=== PATIENT | male | born 1985 | race Caucasian/White ===

== ENCOUNTER 2016-09-16 20:17 | Emergency (ER) | payer MEDICAID ==
[2016-07-19 09:07] VITALS: BMI 25.8
[~2016-09-16 20:17] MED LIST: AMBIEN10 MG; AMOXICILLIN500 M1; BACLOFEN10 MG; CELEXA40 MG; HUMALOG 30100 UNITS/ SC; HYDROCODON-ACE1 EAC7; KLONOPIN1 MG; LANTUS INSULIN10 ML SC; LISINOPRIL5 MG PO; NEURONTIN 300300 MG; NORVASC10 MG; NORVASC5 MG; SAPHRIS5 MG SL; TENORMIN100 MG; TESSALON PERLE100 MG; VIBRAMYCIN 100100 MG; XANAX1 MG
== END 2016-09-16 22:56 | disposition home or self-care (01) ==
LOC: D.ER 20:17
DX: Z76.5 Malingerer [conscious simulation] (principal); Z03.89 Encounter for observation for other suspected diseases and conditions ruled out; F17.200 Nicotine dependence, unspecified, uncomplicated; F31.9 Bipolar disorder, unspecified

== ENCOUNTER 2016-09-18 10:30 | Emergency (ER) | payer MEDICAID ==
[2016-07-19 09:07] VITALS: BMI 25.8
== END 2016-09-18 15:40 | disposition left against medical advice (07) ==
LOC: D.ER 10:30
DX: D64.9 Anemia, unspecified (principal); K92.2 Gastrointestinal hemorrhage, unspecified; F10.10 Alcohol abuse, uncomplicated; F30.2 Manic episode, severe with psychotic symptoms; Z76.5 Malingerer [conscious simulation]; I10 Essential (primary) hypertension

== ENCOUNTER 2016-12-10 02:05 | Emergency (ER) | payer MEDICAID ==
[2016-07-19 09:07] VITALS: BMI 25.8
[2016-12-10 04:20] LABS: BASOPHILS 0.1 % (0-2); HEMATOCRIT 39.7 % (42.0-54.0); HEMOGLOBIN 13.7 g/dL (13.5-17.5); IMMATURE GRANULOCYTES 0.4 % (0-5); LYMPHOCYTES 35.8 % (15-50); MCH 31.1 pg (26.0-34.0); MCHC 34.5 g/dL (31.0-37.0); MCV 90.2 fL (80.0-100.0); MEAN PLATELET VOLUME 9.7 fL (7.4-10.4); MONOCYTES 7.3 % (2-11); NEUTROPHILS 55.4 % (40-80); RDW 12.8 % (11.5-14.5); WBC 8.2 10x3/uL (4.8-10.8)
[2016-12-10 04:21] LABS: UDS - AMPHET NEGATIVE QUAL (NEGATIVE); UDS - BARB NEGATIVE QUAL (NEGATIVE); UDS - BENZO POSITIVE QUAL (NEGATIVE); UDS - COCAINE NEGATIVE QUAL (NEGATIVE); UDS - METH NEGATIVE QUAL (NEGATIVE); UDS - OPIATE NEGATIVE QUAL (NEGATIVE); UDS - PCP NEGATIVE QUAL (NEGATIVE); UDS - THC NEGATIVE QUAL (NEGATIVE)
[2016-12-10 04:23] LABS: APPEARANCE CLEAR (CLEAR); BILIRUBIN NEGATIVE (NEGATIVE); COLOR YELLOW (YELLOW); GLUCOSE NEGATIVE (NEGATIVE); KETONE NEGATIVE (NEGATIVE); LEUKOCYTE ESTERASE NEGATIVE (NEGATIVE); NITRITE NEGATIVE (NEGATIVE); PROTEIN NEGATIVE (NEGATIVE); UROBILINOGEN NORMAL (NORMAL)
[2016-12-10 04:25] LABS: PLATELET COUNT 205 10x3/uL (130-400)
[2016-12-10 04:27] LABS: ALBUMIN 4.5 g/dL (3.4-5.0); ALKALINE PHOSPHATASE 62 U/L (46-116); ALT (SGPT) 32 U/L (10-68); BILIRUBIN - TOTAL 0.41 mg/dL (0.2-1.3); CALC OSMOLALITY 279 mosm/kg (275-300); CALCIUM 9.2 mg/dL (8.5-10.1); CARBON DIOXIDE 28.7 mmol/L (21.0-32.0); CHLORIDE - SERUM 105 mmol/L (98-107); CREATININE - SERUM 0.9 mg/dL (0.6-1.3); POTASSIUM - SERUM 3.7 mmol/L (3.5-5.1); PROTEIN - SERUM 7.9 g/dL (6.4-8.2); SODIUM 141 mmol/L (136-145); UREA NITROGEN 11 mg/dL (7-18); eGFR NON AFRICAN AMERICAN > 90 mL/min (90-120)
[2016-12-10 04:30] LABS: GLUCOSE 92 mg/dL (74-106)
[2016-12-10 04:37] LABS: THYROID STIMULATING HORMONE 2.09 uIU/mL (0.36-3.74)
== END 2016-12-10 06:58 | disposition short-term general hospital (02) ==
LOC: D.ER 02:05
PROVIDERS: Family Medicine
DX: R45.851 Suicidal ideations (principal); F23 Brief psychotic disorder; F31.9 Bipolar disorder, unspecified

== ENCOUNTER 2017-06-16 17:02 | Emergency (ER) | payer MEDICAID ==
[2016-07-19 09:07] VITALS: BMI 25.8
== END 2017-06-16 18:14 | disposition home or self-care (01) ==
LOC: D.ER 17:02
DX: S49.91XA Unspecified injury of right shoulder and upper arm, initial encounter (principal); W19.XXXA Unspecified fall, initial encounter; Y93.89 Activity, other specified; Y92.029 Unspecified place in mobile home as the place of occurrence of the external cause; F17.200 Nicotine dependence, unspecified, uncomplicated

== ENCOUNTER 2017-09-14 18:46 | Emergency (ER) | payer MEDICAID ==
[2016-07-19 09:07] VITALS: BMI 25.8
== END 2017-09-14 23:49 | disposition home or self-care (01) ==
LOC: D.ER 18:46
DX: S80.01XA Contusion of right knee, initial encounter (principal); Y04.2XXA Assault by strike against or bumped into by another person, initial encounter; Y93.89 Activity, other specified; Y92.89 Other specified places as the place of occurrence of the external cause; F17.200 Nicotine dependence, unspecified, uncomplicated

== ENCOUNTER 2018-03-25 15:14 | Emergency (ER) | payer MEDICAID ==
[~2018-03-25] VITALS: Ht 180.3 cm; Wt 75.0 kg
[2018-03-25 15:22] VITALS: Ht 180.3 cm; Wt 75.0 kg
[2018-03-25] MEDS ORDERED: NAPROSYN500 MG PO (16:07)
[2018-03-25] MEDS ORDERED: ROBAXIN500 MG PO (16:07)
[2018-03-25 17:00] VITALS: BP 122/80
== END 2018-03-25 16:19 | disposition home or self-care (01) ==
LOC: D.ER 15:14
DX: M25.511 Pain in right shoulder (principal); S46.911A Strain of unspecified muscle, fascia and tendon at shoulder and upper arm level, right arm, initial encounter; X58.XXXA Exposure to other specified factors, initial encounter; Y93.89 Activity, other specified; Y92.019 Unspecified place in single-family (private) house as the place of occurrence of the external cause; E11.9 Type 2 diabetes mellitus without complications; I10 Essential (primary) hypertension; F17.200 Nicotine dependence, unspecified, uncomplicated; J44.9 Chronic obstructive pulmonary disease, unspecified

== ENCOUNTER 2018-04-23 22:05 | Emergency (ER) | payer MEDICAID ==
[~2018-04-23] VITALS: Ht 180.3 cm; Wt 74.1 kg
[~2018-04-23 22:05] MED LIST changes: +NAPROSYN500 MG PO; +ROBAXIN500 MG PO
[2018-04-23 22:21] VITALS: Ht 180.3 cm; Wt 74.1 kg
[2018-04-23] MEDS ORDERED: SEROQUEL400 MG PO (22:23)
[2018-04-23] MEDS ORDERED: ZOLOFT100 MG PO (22:24)
[2018-04-23] MEDS ORDERED: ZANTAC300 MG PO (22:24)
[2018-04-23] MEDS ORDERED: XANAX1 MG (22:24)
[2018-04-23] MEDS ORDERED: PHENERGAN DM SYR5 ML PO (23:32)
[2018-04-23] MEDS ORDERED: VIBRAMYCIN 100100 MG PO (23:32)
[2018-04-24 00:18] VITALS: BP 146/84
== END 2018-04-24 00:19 | disposition home or self-care (01) ==
LOC: D.ER 22:05
DX: J20.9 Acute bronchitis, unspecified (principal); J06.9 Acute upper respiratory infection, unspecified; F17.200 Nicotine dependence, unspecified, uncomplicated; F20.9 Schizophrenia, unspecified

== ENCOUNTER 2020-04-04 14:56 | Emergency (ER) | payer MEDICAID ==
[~2020-04-04] VITALS: Ht 180.3 cm; Wt 70.5 kg
[~2020-04-04 14:56] MED LIST changes: +PHENERGAN DM SYR5 ML PO; +SEROQUEL400 MG PO; +VIBRAMYCIN 100100 MG PO; +ZANTAC300 MG PO; +ZOLOFT100 MG PO
[2020-04-04 15:23] VITALS: Ht 180.3 cm; Wt 70.5 kg
[2020-04-04] MEDS ORDERED: CYCLOBENZAPRINE10 MG PO ×2 (17:17→17:22)
[2020-04-04] MEDS ORDERED: NAPROSYN500 MG PO ×2 (17:17→17:22)
[2020-04-04 17:27] VITALS: BP 146/94
== END 2020-04-04 17:28 | disposition home or self-care (01) ==
LOC: D.ER 14:56
DX: S70.12XA Contusion of left thigh, initial encounter (principal); S80.02XA Contusion of left knee, initial encounter; S83.92XA Sprain of unspecified site of left knee, initial encounter; W01.0XXA Fall on same level from slipping, tripping and stumbling without subsequent striking against object, initial encounter; Y93.9 Activity, unspecified; Y92.9 Unspecified place or not applicable; E11.9 Type 2 diabetes mellitus without complications; I10 Essential (primary) hypertension; J44.9 Chronic obstructive pulmonary disease, unspecified; Z72.0 Tobacco use

== ENCOUNTER 2020-05-23 15:04 | Emergency (ER) | payer MEDICAID ==
[~2020-05-23] VITALS: Ht 180.3 cm; Wt 65.9 kg
[~2020-05-23 15:04] MED LIST changes: +CYCLOBENZAPRINE10 MG PO
[2020-05-23 15:20] VITALS: BP 154/97; Ht 180.3 cm; Wt 65.9 kg
[2020-05-23] MEDS ORDERED: BACLOFEN20 M1 PO (17:11)
[2020-05-23] MEDS ORDERED: VOLTAREN75 MG PO (17:11)
== END 2020-05-23 17:42 | disposition home or self-care (01) ==
LOC: D.ER 15:04
DX: M25.511 Pain in right shoulder (principal); S49.91XA Unspecified injury of right shoulder and upper arm, initial encounter; W19.XXXA Unspecified fall, initial encounter; Y93.9 Activity, unspecified; Y92.9 Unspecified place or not applicable; I10 Essential (primary) hypertension; J44.9 Chronic obstructive pulmonary disease, unspecified

== ENCOUNTER 2020-11-18 05:19 | Inpatient (IN) | payer MEDICAID ==
[2020-11-18] VITALS (19 sets, daily range): BP systolic 87–162; BP diastolic 45–96; BMI 24.4
[~2020-11-18] VITALS: Ht 180.3 cm; Wt 79.4 kg
[~2020-11-18 05:19] MED LIST changes: +AMBIEN10 MG PO; +BACLOFEN20 M1 PO; +GABAPENTIN300 MG PO; +PRINIVIL20 MG PO; +SEROQUEL200 MG PO; +VOLTAREN75 MG PO; +XANAX1 MG PO
[2020-11-18] MEDS ORDERED: METFORMIN HCL500 M1 PO (05:28)
--- NOTE | 2020-11-18 05:34 | NUR ---
POC GLUCOSE 444. NOTIFIED
[2020-11-18 05:52] LABS: HEMATOCRIT 45.3 % (42.0-54.0); HEMOGLOBIN 15.7 g/dL (13.5-17.5); LYMPHOCYTE ABS# 3.05 10x3/uL (1.32-3.57); MCH 29.5 pg (26.0-34.0); MCHC 34.7 g/dL (31.0-37.0); MEAN PLATELET VOLUME 11.7 fL (7.4-10.4); PLATELET COUNT 289 10x3/uL (130-400); RBC 5.33 10x6/uL (4.20-6.10); RDW 12.5 % (11.5-14.5); WBC 26.1 10x3/uL (4.8-10.8)
[2020-11-18 06:15] LABS: ALBUMIN 4.4 g/dL (3.4-5.0); BILIRUBIN - TOTAL 0.38 mg/dL (0.2-1.3); CREATININE - SERUM 1.2 mg/dL (0.6-1.3); MAGNESIUM - SERUM 2.3 mg/dL (1.8-2.4); PROTEIN - SERUM 8.7 g/dL (6.4-8.2)
[2020-11-18 06:20] LABS: EOSINOPHILS 1 % (0-7); LYMPHOCYTES 14 % (15-50); MONOCYTES 5 % (2-11); NEUTROPHILS 77 % (40-80); PLATELET ESTIMATE NORMAL; PLATELET MORPHOLOGY GIANT PLTS PRESENT
[2020-11-18 06:24] LABS: ANION GAP 38.1 mmol/L (8-16); CARBON DIOXIDE 4.9 mmol/L (21.0-32.0)
[2020-11-18 06:28] LABS: BILIRUBIN NEGATIVE (NEGATIVE); KETONE LARGE mg/dL (NEGATIVE); NITRITE NEGATIVE (NEGATIVE); UROBILINOGEN NORMAL mg/dL (< 2)
--- NOTE | 2020-11-18 06:47 | NUR ---
PT STATES HAVING DIFFICULTY BREATHING REQUESTING 02 NC. NOTIFIED PT PLACED ON 02 2L
[2020-11-18 07:05] LABS: UDS - AMPHET NEGATIVE QUAL (NEGATIVE); UDS - BARB NEGATIVE QUAL (NEGATIVE); UDS - BENZO NEGATIVE QUAL (NEGATIVE); UDS - COCAINE NEGATIVE QUAL (NEGATIVE); UDS - OPIATE NEGATIVE QUAL (NEGATIVE); UDS - PCP NEGATIVE QUAL (NEGATIVE); UDS - THC POSITIVE QUAL (NEGATIVE)
--- NOTE | 2020-11-18 07:52 | NUR ---
INSULIN DRIP STARTED AT 4 UNITS / HR PER ORDERS
--- NOTE | 2020-11-18 07:56 | NUR ---
BLOOD SUGAR TO BE RECHECKED EVERY HOUR, NEXT ONE AT 0820.
[2020-11-18 09:49] LABS: CALCIUM 8.1 mg/dL (8.5-10.1); CHLORIDE - SERUM 100 mmol/L (98-107); CREATININE - SERUM 1.1 mg/dL (0.6-1.3); POTASSIUM - SERUM 4.9 mmol/L (3.5-5.1); SODIUM 134 mmol/L (136-145); UREA NITROGEN 18 mg/dL (7-18); eGFR NON AFRICAN AMERICAN 80 mL/min (90-120)
[2020-11-18 09:53] LABS: CALC OSMOLALITY 281 mosm/kg (275-300); GLUCOSE 307 mg/dL (74-106)
[2020-11-18 09:55] LABS: CARBON DIOXIDE 7.9 mmol/L (21.0-32.0)
[2020-11-18 13:43] LABS: ALBUMIN 3.4 g/dL (3.4-5.0); ALKALINE PHOSPHATASE 95 U/L (30-120); ALT (SGPT) 19 U/L (10-68); BILIRUBIN - TOTAL 0.36 mg/dL (0.2-1.3); CALCIUM 7.8 mg/dL (8.5-10.1); CHLORIDE - SERUM 102 mmol/L (98-107); POTASSIUM - SERUM 4.4 mmol/L (3.5-5.1); PROTEIN - SERUM 6.6 g/dL (6.4-8.2); SODIUM 132 mmol/L (136-145); UREA NITROGEN 15 mg/dL (7-18); eGFR NON AFRICAN AMERICAN 89 mL/min (90-120)
[2020-11-18 13:46] LABS: CALC OSMOLALITY 269 mosm/kg (275-300); CARBON DIOXIDE 6.7 mmol/L (21.0-32.0); GLUCOSE 165 mg/dL (74-106)
--- NOTE | 2020-11-18 14:17 | NUR ---
0815 PT ARRIVED FROM ER [facility]IA [facility] [place], HE IS AAO , MOVED SELF TO ICU BED FROM ER [facility]... SEE ADMISSION ASSESMENT FORM FOR PATIENT FINDINGS.. INSULIN DRIP INFUSING ON ARRIVAL AND NS BOLUS IN PROGRESS FROM THE ED... 0830 LAB IN TO DRAW BLOOD FSBS DONE AT THIS TIME.. 0840 [facility] [employer] FOR DR ADAMS CALLED AND NOTOIED OF PATIENT IN UNIT... [employer] HERE TO SEE PATIENT.. PATIENT IS REQUESTING RESTATRT OF HOME MEDS 0941 ABGS REPEATED BS OBTAINED.. IV FLUID CHANGE TO D5NS AT 125 AT THIS TIME.. PER DKA PROTOCOL 1100 DR ADAMS IN TO SEE PAIENT.. PATIENT CONTINUES TO C/O OF ABDOMINAL PAIN TELLS DR THAT IT IS MORE MUSCLE PAIN FROM VOMITING LAST NIGHT. MEDS INPYXSIS FOR ANXIETY GIVEN NOW 1200 BP LOW 1345 LAB DRAWN AND CO2 REMAINS LOW AT 6.7 DR ADAMS CALLED AND ORDER RECIEVED FOR BICARB TO BE ADDED IN PIV FLUID D5NS DR INFORMED OF LOW BP AFTER MEDS GIVEN. NO ORDERS RECIEVED FOR THIS
--- NOTE | 2020-11-18 15:51 | NUR ---
1400 BICARB DRIP INITIATED PER ORDER.. BS DONE RATE CHANGE SEE FLOW SHEET.. 1430 PATIENTS FATHER IN TO SEE PATIENT.. PT CONVERSING.. 1500 BS DONE
[2020-11-18 16:03] LABS: ALBUMIN 3.2 g/dL (3.4-5.0); BILIRUBIN - TOTAL 0.28 mg/dL (0.2-1.3); CALCIUM 7.6 mg/dL (8.5-10.1); POTASSIUM - SERUM 4.2 mmol/L (3.5-5.1); PROTEIN - SERUM 6.1 g/dL (6.4-8.2)
[2020-11-18 16:05] LABS: CREATININE - SERUM 1.5 mg/dL (0.6-1.3)
[2020-11-18 16:06] LABS: CARBON DIOXIDE 13.2 mmol/L (21.0-32.0)
--- NOTE | 2020-11-18 16:39 | NUR ---
1640 CONTINUED C/O ABDOMINAL PAIN AMYLASE AND LIPASE ORDERED... WBC ELEVATED ON RECENT LABS
[2020-11-18 16:54] LABS: AMYLASE - SERUM 119 U/L (25-115); LIPASE 651 U/L (73-393)
--- NOTE | 2020-11-18 19:20 | NUR ---
REPORT REC'D AND CARE ASSUMED, PT RESTING IN BED ON SIDE, AWAKENS TO VERBAL STIMULI, ON RA, ORIENTED X 4, COMPLAINS OF ABD PAIN FROM "THROWING UP SO MUCH LAST NIGHT" RIGHT FA PIV WITH D5NS WITH 1AMP BICARB @ 125CC/HR AND INSULIN DRIP INFUSING @ 5.5, CM-SR, PT REQUESTING SOMETHING TO EAT, EXPLAINED TO PT THAT HE COULD NOT HAVE FOOD AT THIS TIME DUE TO DKA, PT VERBALIZES UNDERSTANDING, MAEE, URINAL AND CALL LIGHT IN REACH.
--- NOTE | 2020-11-18 20:00 | NUR ---
PT CONTNUES TO COMPLAIN OF ABDOMINAL PAIN WITH MOVEMENT, 2MG MORPHINE GIVEN SLOW IVP AT THIS TIME, BP 121/69, WILL MONITOR FOR CHANGES.
[2020-11-18 20:11] LABS: ALBUMIN 3.1 g/dL (3.4-5.0); ANION GAP 16.6 mmol/L (8-16); BILIRUBIN - TOTAL 0.2 mg/dL (0.2-1.3); CALCIUM 7.9 mg/dL (8.5-10.1); CARBON DIOXIDE 16.5 mmol/L (21.0-32.0); CREATININE - SERUM 1.6 mg/dL (0.6-1.3); MAGNESIUM - SERUM 2.1 mg/dL (1.8-2.4); POTASSIUM - SERUM 4.1 mmol/L (3.5-5.1)
[2020-11-19] VITALS (24 sets, daily range): BP systolic 98–153; BP diastolic 53–103; Ht 180.3 cm; Wt 79.4 kg
--- NOTE | 2020-11-19 02:15 | NUR ---
PT COMPLAINS OF ABD PAIN, GUARDING ABDOMEN AND CURLED INTO THE POSITION IN BED AT THIS TIME, 4MG MORPHINE GIVEN SLOW IVP, CONT TO TITRATE INSULIN NEEDED.
[2020-11-19 04:26] LABS: BASOPHILS 0.2 % (0-2); EOSINOPHILS 1.2 % (0-7); IMMATURE GRANULOCYTES 0.4 % (0-5); LYMPHOCYTE ABS# 2.28 10x3/uL (1.32-3.57); LYMPHOCYTES 23.4 % (15-50); MCH 29.3 pg (26.0-34.0); MCHC 35.3 g/dL (31.0-37.0); MCV 83.2 fL (80.0-100.0); MONOCYTES 9.5 % (2-11); NEUTROPHIL ABS# 6.37 10x3/uL (1.78-5.38); NEUTROPHILS 65.3 % (40-80)
[2020-11-19 04:41] LABS: HEMATOCRIT 32.6 % (42.0-54.0); HEMOGLOBIN 11.5 g/dL (13.5-17.5); PLATELET COUNT 176 10x3/uL (130-400); RBC 3.92 10x6/uL (4.20-6.10); WBC 9.8 10x3/uL (4.8-10.8)
[2020-11-19 04:49] LABS: ALBUMIN 2.8 g/dL (3.4-5.0); ALKALINE PHOSPHATASE 73 U/L (30-120); ALT (SGPT) 13 U/L (10-68); BILIRUBIN - TOTAL 0.18 mg/dL (0.2-1.3); CALCIUM 7.9 mg/dL (8.5-10.1); CARBON DIOXIDE 20.1 mmol/L (21.0-32.0); CHLORIDE - SERUM 110 mmol/L (98-107); GLUCOSE 127 mg/dL (74-106); POTASSIUM - SERUM 3.5 mmol/L (3.5-5.1); PROTEIN - SERUM 5.6 g/dL (6.4-8.2); SODIUM 141 mmol/L (136-145); eGFR NON AFRICAN AMERICAN 89 mL/min (90-120)
[2020-11-19 04:50] LABS: CALC OSMOLALITY 281 mosm/kg (275-300); UREA NITROGEN 11 mg/dL (7-18)
[2020-11-19 11:24] LABS: ALBUMIN 2.9 g/dL (3.4-5.0); ALKALINE PHOSPHATASE 70 U/L (30-120); ALT (SGPT) 17 U/L (10-68); BILIRUBIN - TOTAL 0.21 mg/dL (0.2-1.3); CALC OSMOLALITY 281 mosm/kg (275-300); CALCIUM 7.8 mg/dL (8.5-10.1); CARBON DIOXIDE 20.4 mmol/L (21.0-32.0); CHLORIDE - SERUM 109 mmol/L (98-107); CREATININE - SERUM 0.7 mg/dL (0.6-1.3); GLUCOSE 133 mg/dL (74-106); POTASSIUM - SERUM 3.3 mmol/L (3.5-5.1); PROTEIN - SERUM 5.2 g/dL (6.4-8.2); SODIUM 141 mmol/L (136-145); UREA NITROGEN 11 mg/dL (7-18); eGFR NON AFRICAN AMERICAN > 90 mL/min (90-120)
[2020-11-19 14:21] LABS: AMYLASE - SERUM 43 U/L (25-115); LIPASE 171 U/L (73-393)
--- NOTE | 2020-11-19 15:12 | NUR ---
INSULIN DRIP AND IV FLUID DISCONTINUED AND LAB VALUES OK AND WILL START WITH CLEAR LIQUID DIET TODAY. NO COMPLAINTS VOICED AND NO DISTRESS NOTED.
--- NOTE | 2020-11-19 16:50 | NUR ---
BLOOD SUGAR DONE BEFORE MEAL TONIGHT AND COVERAGE GIVEN FOR BLOOD SUGAR. PATIENT ABLE TO TOLERATE CLEAR LIQUIDS AT THIS TIME AMD HAS NO COMPLAINTS.
[2020-11-20] VITALS (10 sets, daily range): BP systolic 109–155; BP diastolic 58–114
[2020-11-20 03:49] LABS: BASOPHILS 0.2 % (0-2); HEMATOCRIT 32.4 % (42.0-54.0); HEMOGLOBIN 11.1 g/dL (13.5-17.5); IMMATURE GRANULOCYTES 0.3 % (0-5); LYMPHOCYTES 30.8 % (15-50); MCH 29.1 pg (26.0-34.0); MCHC 34.3 g/dL (31.0-37.0); MCV 84.8 fL (80.0-100.0); MEAN PLATELET VOLUME 11.2 fL (7.4-10.4); MONOCYTES 8.9 % (2-11); NEUTROPHIL ABS# 3.43 10x3/uL (1.78-5.38); NEUTROPHILS 58.8 % (40-80); PLATELET COUNT 168 10x3/uL (130-400); RBC 3.82 10x6/uL (4.20-6.10); RDW 13.2 % (11.5-14.5)
[2020-11-20 03:55] LABS: WBC 5.8 10x3/uL (4.8-10.8)
[2020-11-20 04:06] LABS: ALBUMIN 2.7 g/dL (3.4-5.0); ALKALINE PHOSPHATASE 66 U/L (30-120); ALT (SGPT) 16 U/L (10-68); BILIRUBIN - TOTAL 0.22 mg/dL (0.2-1.3); CALCIUM 7.9 mg/dL (8.5-10.1); CHLORIDE - SERUM 104 mmol/L (98-107); CREATININE - SERUM 0.6 mg/dL (0.6-1.3); GLUCOSE 137 mg/dL (74-106); POTASSIUM - SERUM 3.6 mmol/L (3.5-5.1); PROTEIN - SERUM 5.4 g/dL (6.4-8.2); SODIUM 139 mmol/L (136-145); eGFR NON AFRICAN AMERICAN > 90 mL/min (90-120)
[2020-11-20 04:23] LABS: CALC OSMOLALITY 277 mosm/kg (275-300); CARBON DIOXIDE 26.1 mmol/L (21.0-32.0); UREA NITROGEN 6 mg/dL (7-18)
--- NOTE | 2020-11-20 10:26 | NUR ---
ORDERS RECEIVED TO D/C PT. HE IS GETTING DRESSED AND CALLING A FRIEND TO PICK HIM UP.
[2020-11-20] MEDS ORDERED: AVANDIA2 MG PO (10:27)
--- NOTE | 2020-11-20 10:40 | NUR ---
IV REMOVED. TIP INTACT.
[2020-11-20] MEDS ORDERED: CARAFATE1 G PO (11:24)
[2020-11-20] MEDS ORDERED: OMEPRAZOLE40 MG PO (11:24)
--- NOTE | 2020-11-20 11:46 | NUR ---
GLYBIZIDE 5 MG DAILY WILL BE SUBSTITUTED FOR [facility] CM REPORTS IT WOULD BE TOO EXPENSIVE.
== END 2020-11-20 12:16 | disposition home or self-care (01) | DRG 638 ==
LOC: D.ER 05:19 → D.ICU 06:40
PROVIDERS: Family Medicine; ADMIT Emergency Medicine; ATTEND Emergency Medicine
DX: E11.10 Type 2 diabetes mellitus with ketoacidosis without coma (principal); E87.1 Hypo-osmolality and hyponatremia; J44.9 Chronic obstructive pulmonary disease, unspecified; Z79.84 Long term (current) use of oral hypoglycemic drugs; I10 Essential (primary) hypertension; F41.9 Anxiety disorder, unspecified; F31.9 Bipolar disorder, unspecified; F17.200 Nicotine dependence, unspecified, uncomplicated

== ENCOUNTER 2020-12-11 12:01 | Emergency (ER) | payer MEDICAID ==
[~2020-12-11] VITALS: Ht 180.3 cm; Wt 75.0 kg
[~2020-12-11 12:01] MED LIST changes: +AVANDIA2 MG PO; +CARAFATE1 G PO; +METFORMIN HCL500 M1 PO; +OMEPRAZOLE40 MG PO
[2020-12-11 12:05] VITALS: Ht 180.3 cm; Wt 75.0 kg
[2020-12-11] MEDS ORDERED: IBUPROFEN800 MG PO (12:54)
== END 2020-12-11 13:04 | disposition home or self-care (01) ==
LOC: D.ER 12:01
DX: M25.512 Pain in left shoulder (principal); E11.9 Type 2 diabetes mellitus without complications; I10 Essential (primary) hypertension; J44.9 Chronic obstructive pulmonary disease, unspecified; F17.200 Nicotine dependence, unspecified, uncomplicated; Z79.84 Long term (current) use of oral hypoglycemic drugs

== ENCOUNTER → 2021-01-08 | Emergency (ER) | payer MEDICAID ==
[~2021-01-08] VITALS: Ht 180.3 cm; Wt 68.2 kg
[~2021-01-08] MED LIST changes: +IBUPROFEN800 MG PO
[2021-01-08 20:38] VITALS: BP 120/87; Ht 180.3 cm; Wt 68.2 kg
[2021-01-08 21:37] LABS: CALC OSMOLALITY 281 mosm/kg (275-300); CALCIUM 9.1 mg/dL (8.5-10.1); CARBON DIOXIDE 25.8 mmol/L (21.0-32.0); CHLORIDE - SERUM 105 mmol/L (98-107); CREATININE - SERUM 0.8 mg/dL (0.6-1.3); GLUCOSE 106 mg/dL (74-106); POTASSIUM - SERUM 4.4 mmol/L (3.5-5.1); SODIUM 141 mmol/L (136-145); UREA NITROGEN 16 mg/dL (7-18); eGFR NON AFRICAN AMERICAN > 90 mL/min (90-120)
[2021-01-08 21:44] LABS: ALKALINE PHOSPHATASE 79 U/L (30-120); ALT (SGPT) 23 U/L (10-68); BILIRUBIN - TOTAL 0.25 mg/dL (0.2-1.3); LIPASE 204 U/L (73-393); PROTEIN - SERUM 6.9 g/dL (6.4-8.2)
[2021-01-08 21:47] LABS: BASOPHILS 0.3 % (0-2); EOSINOPHILS 1.1 % (0-7); HEMATOCRIT 44.7 % (42.0-54.0); HEMOGLOBIN 15.2 g/dL (13.5-17.5); LYMPHOCYTES 28.6 % (15-50); MCH 29.3 pg (26.0-34.0); MCV 86.2 fL (80.0-100.0); MEAN PLATELET VOLUME 8.8 fL (7.4-10.4); MONOCYTES 10.2 % (2-11); NEUTROPHILS 59.8 % (40-80); RBC 5.19 10x6/uL (4.20-6.10); RDW 13.1 % (11.5-14.5); WBC 9.1 10x3/uL (4.8-10.8)
[2021-01-08 22:02] LABS: UDS - AMPHET NEGATIVE QUAL (NEGATIVE); UDS - BARB NEGATIVE QUAL (NEGATIVE); UDS - BENZO POSITIVE QUAL (NEGATIVE); UDS - COCAINE NEGATIVE QUAL (NEGATIVE); UDS - OPIATE NEGATIVE QUAL (NEGATIVE); UDS - PCP NEGATIVE QUAL (NEGATIVE); UDS - THC POSITIVE QUAL (NEGATIVE)
[2021-01-08 22:03] LABS: BILIRUBIN NEGATIVE (NEGATIVE); KETONE NEGATIVE (NEGATIVE); NITRITE NEGATIVE (NEGATIVE); PLATELET COUNT 247 10x3/uL (130-400); UROBILINOGEN NORMAL mg/dL (< 2)
[2021-01-08 22:05] LABS: WHITE CELLS - URINE OCC HPF (0-1)
== END | disposition home or self-care (01) ==
LOC: D.ER 20:03
PROVIDERS: Family Medicine
DX: R10.9 Unspecified abdominal pain (principal); E11.9 Type 2 diabetes mellitus without complications; I10 Essential (primary) hypertension; J44.9 Chronic obstructive pulmonary disease, unspecified

== ENCOUNTER 2021-02-07 10:05 | Emergency (ER) | payer MEDICAID ==
[~2021-02-07] VITALS: Ht 180.3 cm; Wt 68.2 kg
[2021-02-07 10:10] VITALS: Ht 180.3 cm; Wt 68.2 kg
[2021-02-07] MEDS ORDERED: HYDROCODON-ACE1 EAC7 PO (10:22)
[2021-02-07] MEDS ORDERED: CYCLOBENZAPRINE10 MG PO (10:22)
== END 2021-02-07 11:10 | disposition home or self-care (01) ==
LOC: D.ER 10:05
DX: M54.2 Cervicalgia (principal)